=== PATIENT | male | born 2000 | race Caucasian/White ===

== ENCOUNTER 2021-09-22 11:17 | Emergency (ER) | payer SELFPAY ==
[~2021-09-22] VITALS: Ht 175.3 cm; Wt 63.5 kg
[2021-09-22 13:29] VITALS: BP 112/69
[2021-09-22] MEDS ORDERED: AMOX500T86 PO (13:53)
[2021-09-22] MEDS ORDERED: NAPR500T31 PO (13:53)
== END 2021-09-22 14:04 | disposition home or self-care (01) ==
LOC: EDBD 11:17 → EDUNIT# 11:17 → ER 11:27
DX: S02.2XXA Fracture of nasal bones, initial encounter for closed fracture (principal); S00.83XA Contusion of other part of head, initial encounter; Y04.8XXA Assault by other bodily force, initial encounter; Y93.89 Activity, other specified; Y92.89 Other specified places as the place of occurrence of the external cause; Y99.8 Other external cause status
CPT/HCPCS: 70450; 70486